=== PATIENT | female | born 1965 | race Caucasian/White ===

== ENCOUNTER 2023-04-12 12:40 | Outpatient (OUT) | payer BC, SELFPAY ==
--- NOTE | 2023-04-12 12:43 | CT_ITS ---
The [address] [address] Patient Name: THOMAS RUTH MRN: [id number] date: 1965 Sex: F Assigned Patient Location: CT Current Patient Location: CT Accession/Order Number: [id number] Exam Date: 04/12/2023 13:50 Report Date: 04/12/2023 14:24 At the request of: WAYNE ROWE Procedure: CT abdomen pelvis w con EXAM: CT scan of the abdomen and pelvis using 99 mL of IV iodinated contrast. Oral contrast. Dose reduction technique used: Automated exposure control and/or adjustment of the mA and/or kV according to patient size and/or use of iterative reconstruction technique. REASON FOR EXAM: Pelvic pain, bilateral lower abdominal pain, diarrhea COMPARISON: CT scan dated 02/01/2010 FINDINGS: Nonobstructing tiny right calyceal tip renal stone. Multiple hepatic cysts. Mild lumbar scoliosis. Normal appendix. No free fluid in the abdomen or pelvis. No free intraperitoneal air. No dilated or thickened loops of small bowel or colon. No hydronephrosis or obstructing renal or ureteral calculi. Liver, pancreas, spleen, bilateral kidneys, and bilateral adrenal glands are otherwise unremarkable. No lymphadenopathy in the abdomen or pelvis. Remainder unremarkable. CT/CT abdomen pelvis w con IMPRESSION: No acute abnormalities in the abdomen or pelvis. Electronically authenticated by: ROSS NEW Date: 04/12/2023 14:24
== END 2023-04-12 12:41 | disposition home or self-care (01) ==
LOC: CT 12:40
PROVIDERS: PCP Family Medicine; Visit Provider Obstetrics & Gynecology
DX: R10.2 Pelvic and perineal pain (principal)
CPT/HCPCS: 74177; Q9967